=== PATIENT | female | born 1960 | race African-American/Black ===

== ENCOUNTER → 2024-01-12 | Day surgery (SDC) | payer MEDICARE ==
[~2024-01-12] MED LIST: AMLODIPINE BESY10 MG PO; BIOTIN PLUS 5,1 EACH PO; CALCIUM + VITA1 EACH PO; CLONAZEPAM1 MG PO; FAMOTIDINE20 MG PO; FENTANYL CITRATE/PF 100MCG/2 ML INJ ONE; GLUCAGON FOR INJ 1 MG VIAL ONE; LACTATED RINGER'S 1,000 ML BAG ONE; LACTATED RINGER'S 1,000 ML ONE; LIDOCAINE HCL 1% 2 ML AMP ONE; LIDOCAINE HCL 2% LOCAL INJ 5 ML SDV VIAL INJ ONE; MELATONIN3 MG PO; PROPOFOL IV EMULSION 10 MG/ML 50 ML VIAL IV ONE; STOOL SOFTENER100 M1 PO; TYLENOL ARTHRITIS PO; ULTRAM 50MG50 MG PO; VITAMIN B-121000 MC4 PO; VITAMIN D250 MCG PO; VITAMIN D3250 MC1
[2024-01-12] MEDS: LACTATED RINGER'S 1,000 ML BAG IV ONE (06:10)
[2024-01-12 08:45] VITALS: BP 119/92; PULSE 60; RESP 14; O2SAT 98
== END | disposition home or self-care (01) ==
LOC: OR 06:29
PROVIDERS: ATTEND Internal Medicine Gastroenterology
DX: Z12.11 Encounter for screening for malignant neoplasm of colon (principal); D12.0 Benign neoplasm of cecum; K29.80 Duodenitis without bleeding; K57.30 Diverticulosis of large intestine without perforation or abscess without bleeding; K59.00 Constipation, unspecified; K21.9 Gastro-esophageal reflux disease without esophagitis; K64.8 Other hemorrhoids; Z98.84 Bariatric surgery status; D50.9 Iron deficiency anemia, unspecified; I10 Essential (primary) hypertension; M06.9 Rheumatoid arthritis, unspecified; M54.2 Cervicalgia; M54.9 Dorsalgia, unspecified; F41.9 Anxiety disorder, unspecified; Z91.040 Latex allergy status; Z79.1 Long term (current) use of non-steroidal anti-inflammatories (NSAID); Z79.899 Other long term (current) drug therapy
CPT/HCPCS: 43239; 45384; J1610; J2001 ×2; J2704; J3010; J7121